=== PATIENT | male | born 1965 | race Caucasian/White ===

== ENCOUNTER 2019-02-02 05:43 | Emergency (ER) | payer OTHER ==
[~2019-02-02] VITALS: Ht 175.3 cm; Wt 90.8 kg
[2019-02-02 05:49] VITALS: Ht 175.3 cm; Wt 90.8 kg
[2019-02-02 08:19] VITALS: BP 128/81
== END 2019-02-02 08:19 | disposition home or self-care (01) ==
LOC: ED 05:43
DX: M54.16 Radiculopathy, lumbar region (principal); I10 Essential (primary) hypertension; E11.9 Type 2 diabetes mellitus without complications
CPT/HCPCS: 82962; J1100; J1885

== ENCOUNTER 2019-02-16 11:21 | Emergency (ER) | payer OTHER ==
[~2019-02-16] VITALS: Ht 175.3 cm; Wt 88.0 kg
[2019-02-16 11:27] VITALS: Ht 175.3 cm; Wt 88.0 kg
[2019-02-16 12:52] VITALS: BP 148/94
== END 2019-02-16 13:17 | disposition home or self-care (01) ==
LOC: ED 11:21
DX: M54.41 Lumbago with sciatica, right side (principal); I10 Essential (primary) hypertension; E11.9 Type 2 diabetes mellitus without complications
CPT/HCPCS: J1885; J2270; J2930; Q0162